=== PATIENT | male | born 1980 | race Caucasian/White ===

== ENCOUNTER → 2021-05-07 | Outpatient (CLI) | payer BC ==
[2021-05-07 13:49] LABS: HEMOGLOBIN 15.2 gm/dl (14.0-17.5); RED BLOOD COUNT 5.06 M/UL (4.20-5.50); WHITE BLOOD COUNT 11.4 K/UL (4.5-11.0)
[2021-05-07 14:22] LABS: BUN/CREATININE RATIO 10 (0-10)
== END ==
LOC: LAB 13:22
PROVIDERS: Nurse Practitioner Primary Care
DX: U07.1 COVID-19 (principal); R07.9 Chest pain, unspecified
CPT/HCPCS: 36415; 71046; 80053; 82550; 85025; 85379; 85652; 86140